=== PATIENT | female | born 1990 | race African-American/Black ===

== ENCOUNTER 2016-10-20 18:01 | Emergency (ER) | payer OTHER ==
[~2016-10-20] VITALS: Ht 175.3 cm; Wt 104.3 kg
[~2016-10-20 18:01] MED LIST: AFLURIA 2045 MCG/0.4; APAP/CODEINE ELI5 M1 OR; FLAGYL500 MG PO; FREESTYLE INSU1 EAC2; GLUCOPHAGE XR500 MG PO; GLUCOPHAGE1000 MG PO; GLUCOPHAGE500 MG PO; HUMALOG100 UNIT/1; HUMALOG100 UNIT/1 SQ; HYCET 7.5 MG-3473 ML PO; IBUPROFEN 600600 M1 PO; LANTUS100 UNIT/M SUBQ; LANTUSSOLASTAR SUBQ; LEVAQUIN 500 M500 MG PO; LEVEMIR; LEVEMIR SUBQ; LEVEMIR100 UNIT/1 SUBQ; LOPRESSOR25 PO; NAPROSYN500 MG PO; NORCO 5-325 TA1 EACH PO; NOVOLIN 70100 UNIT/1; NOVOLIN 70100 UNIT/1 SQ; NOVOLIN 70100 UNIT/5 SQ; NOVOLOG100 UNIT/1 SUBQ; NOVOPEN 31 EACH; PAXIL10 MG; PENICILLIN V P500 MG PO; PENICILLIN VK250 MG PO; PERCOCET 5-3251 EACH PO; PNEUMOVAX25 MCG/0.5; PREVACID 30MG C30 M1 PO; PROMETHAZINE-C120 ML PO; TRINATE TABLET1 TAB PO; ZPAK PO
[2016-10-20 18:32] LABS: URINE BILIRUBIN NEGATIVE (Negative); URINE BLOOD NEGATIVE (Negative); URINE COLOR YELLOW; URINE GLUCOSE-RANDOM* 3+ (Negative); URINE KETONES 1+ (Negative); URINE NITRITE NEGATIVE (Negative); URINE PROTEIN (DIPSTICK) NEGATIVE (Negative); URINE UROBILINOGEN 0.2 E.U./dl (0.2-1.0)
[2016-10-20 18:49] LABS: HEMATOCRIT 42.9 % (37.0-47.0); HEMOGLOBIN 14.2 gm/dL (12.0-15.0); MCH 28.2 pg (26.0-34.0); MCHC 33.2 g/dL (28.0-37.0); MCV 84.9 fL (80.0-100.0); RBC 5.05 mil/uL (4.20-5.00); WBC 6.2 thou/uL (4.0-11.0)
[2016-10-20 18:58] LABS: CALCIUM 9.2 mg/dL (8.5-10.1); CREATININE 0.9 mg/dL (0.6-1.0); POTASSIUM 4.1 mmol/L (3.5-5.1)
[2016-10-20 19:04] LABS: ALBUMIN 3.8 g/dL (3.4-5.0); TOTAL BILIRUBIN 0.8 mg/dL (<0.1-1.0); TOTAL PROTEIN 7.5 g/dL (6.4-8.2)
[2016-10-20] MEDS ORDERED: LANTUS100 UNIT/M SUBQ (21:00)
[2016-10-20] MEDS ORDERED: NOVOLOG100 UNIT/1 SUBQ (21:00)
[2016-10-20] MEDS ORDERED: MOBIC15 MG PO (21:00)
== END 2016-10-20 21:09 | disposition home or self-care (01) ==
LOC: ER 18:01
PROVIDERS: Physician Assistant
DX: G44.209 Tension-type headache, unspecified, not intractable (principal); E11.65 Type 2 diabetes mellitus with hyperglycemia; Z76.0 Encounter for issue of repeat prescription; Z79.4 Long term (current) use of insulin

== ENCOUNTER 2017-04-23 09:42 | Emergency (ER) | payer OTHER ==
[~2017-04-23] VITALS: Ht 177.8 cm; Wt 90.7 kg
[~2017-04-23 09:42] MED LIST changes: +MOBIC15 MG PO
[2017-04-23] MEDS ORDERED: DELSYM30 MG/5 M1 PO (13:27)
[2017-04-23 13:35] VITALS: BP 132/70
== END 2017-04-23 13:51 | disposition home or self-care (01) ==
LOC: ER 09:42
DX: J06.9 Acute upper respiratory infection, unspecified (principal); E11.9 Type 2 diabetes mellitus without complications

== ENCOUNTER 2017-04-26 11:28 | Emergency (ER) | payer OTHER ==
[~2017-04-26] VITALS: Ht 180.3 cm; Wt 104.3 kg
[~2017-04-26 11:28] MED LIST changes: +DELSYM30 MG/5 M1 PO
[2017-04-26 12:28] LABS: ABSOLUTE NEUTROPHILS 3.8 thou/uL (1.4-8.2); BASOPHILS 0.7 % (0.0-2.0); EOSINOPHILS 0.4 % (0.0-3.0); HEMATOCRIT 43.6 % (37.0-47.0); HEMOGLOBIN 14.8 gm/dL (12.0-15.0); LYMPHOCYTES 25.8 % (24.0-44.0); MCH 28.7 pg (26.0-34.0); MCV 84.3 fL (80.0-100.0); MONOCYTES 8.3 % (1.0-8.0); PLATELET COUNT 226 thou/uL (150-400); POLYS 64.8 % (36.0-66.0); RBC 5.17 mil/uL (4.20-5.00); WBC 5.9 thou/uL (4.0-11.0)
[2017-04-26 12:31] LABS: URINE BILIRUBIN NEGATIVE (Negative); URINE BLOOD NEGATIVE (Negative); URINE CLARITY CLEAR; URINE COLOR YELLOW; URINE GLUCOSE-RANDOM* 3+ (Negative); URINE KETONES TRACE (Negative); URINE LEUKOCYTES NEGATIVE (Negative); URINE NITRITE NEGATIVE (Negative); URINE PROTEIN (DIPSTICK) NEGATIVE (Negative); URINE SPECIFIC GRAVITY <= 1.005 (1.005-1.035); URINE UROBILINOGEN 0.2 E.U./dl (0.2-1.0)
[2017-04-26 12:36] LABS: CALCIUM 9.6 mg/dL (8.5-10.1); POTASSIUM 4.2 mmol/L (3.5-5.1)
[2017-04-26 12:42] LABS: ALBUMIN 4.1 g/dL (3.4-5.0); TOTAL BILIRUBIN 0.3 mg/dL (<0.1-1.0); TOTAL PROTEIN 8.2 g/dL (6.4-8.2)
[2017-04-26] MEDS ORDERED: ZPAK PO (13:25)
[2017-04-26] MEDS ORDERED: VENTOLIN HFA 1818 GM INH (13:28)
[2017-04-26] MEDS ORDERED: PREDNISONE 20 M20 MG PO (13:28)
[2017-04-26 13:33] VITALS: BP 118/78
== END 2017-04-26 13:34 | disposition home or self-care (01) ==
LOC: ER 11:28
PROVIDERS: Physician Assistant
DX: R50.9 Fever, unspecified (principal); E11.9 Type 2 diabetes mellitus without complications

== ENCOUNTER 2017-07-28 11:43 | Emergency (ER) | payer OTHER ==
[~2017-07-28] VITALS: Ht 177.8 cm; Wt 111.1 kg
[~2017-07-28 11:43] MED LIST changes: +PREDNISONE 20 M20 MG PO; +VENTOLIN HFA 1818 GM INH
[2017-07-28 13:23] LABS: ABSOLUTE NEUTROPHILS 3.1 thou/uL (1.4-8.2); BASOPHILS 0.7 % (0.0-2.0); EOSINOPHILS 0.2 % (0.0-3.0); HEMATOCRIT 42.2 % (37.0-47.0); HEMOGLOBIN 13.8 gm/dL (12.0-15.0); LYMPHOCYTES 33.2 % (24.0-44.0); MCH 28.6 pg (26.0-34.0); MCHC 32.8 g/dL (28.0-37.0); MCV 87.1 fL (80.0-100.0); MONOCYTES 4.7 % (1.0-8.0); PLATELET COUNT 252 thou/uL (150-400); POLYS 61.2 % (36.0-66.0); RBC 4.84 mil/uL (4.20-5.00); RDW 13.8 % (10.5-14.5)
[2017-07-28 13:33] LABS: CALCIUM 9.4 mg/dL (8.5-10.1); POTASSIUM 4.2 mmol/L (3.5-5.1)
[2017-07-28] MEDS ORDERED: LANTUS100 UNIT/M SUBQ (13:39)
[2017-07-28] MEDS ORDERED: NOVOLOG100 UNIT/1 SUBQ (13:39)
[2017-07-28] MEDS ORDERED: PENICILLIN VK500 M1 PO (13:40)
== END 2017-07-28 15:55 | disposition home or self-care (01) ==
LOC: ER 11:43
PROVIDERS: Emergency Medicine
DX: E11.9 Type 2 diabetes mellitus without complications (principal); K02.9 Dental caries, unspecified; E66.9 Obesity, unspecified

== ENCOUNTER 2019-07-01 22:45 | Emergency (ER) | payer OTHER ==
[~2019-07-01] VITALS: Ht 175.3 cm; Wt 104.3 kg
[~2019-07-01 22:45] MED LIST changes: +PENICILLIN VK500 M1 PO
[2019-07-01 23:53] LABS: URINE BILIRUBIN NEGATIVE (Negative); URINE BLOOD 3+ (Negative); URINE CLARITY CLOUDY; URINE COLOR YELLOW; URINE GLUCOSE-RANDOM* 1+ (Negative); URINE KETONES TRACE (Negative); URINE NITRITE-REFLEX NEGATIVE (Negative); URINE PROTEIN (DIPSTICK) 1+ (Negative)
[2019-07-01 23:55] LABS: URINE LEUKOCYTES-REFLEX 1+ (Negative)
[2019-07-02 00:08] LABS: SQUAMOUS 0-3 Few /LPF (0-3)
[2019-07-02 00:09] LABS: CRYSTALS None Seen /LPF (None Seen); HYALINE CASTS 0-3 Few /LPF (None Seen); MUCUS 0-3 Light strn/LPF (None Seen); WBC CLUMPS Moderate (None Seen)
[2019-07-02 00:25] VITALS: BP 136/86
[2019-07-05 18:07] LABS: SYPHILIS AB Non Reactive (Non Reactive)
== END 2019-07-02 00:26 | disposition home or self-care (01) ==
LOC: ER 22:45
PROVIDERS: Emergency Medicine Emergency Medical Services
DX: Z20.2 Contact with and (suspected) exposure to infections with a predominantly sexual mode of transmission (principal); E11.9 Type 2 diabetes mellitus without complications; Z79.4 Long term (current) use of insulin

== ENCOUNTER 2020-01-26 08:38 | Emergency (ER) | payer OTHER ==
[~2020-01-26] VITALS: Ht 177.8 cm; Wt 117.9 kg
[2020-01-26] MEDS ORDERED: AUGMENTIN 875-1 EACH PO (10:35)
[2020-01-26 10:57] VITALS: BP 140/85
== END 2020-01-26 10:58 | disposition home or self-care (01) ==
LOC: ER 08:38
DX: J06.9 Acute upper respiratory infection, unspecified (principal); J32.1 Chronic frontal sinusitis; J32.0 Chronic maxillary sinusitis; E11.9 Type 2 diabetes mellitus without complications; Z79.4 Long term (current) use of insulin